=== PATIENT | male | born 1940 | race Caucasian/White ===

== ENCOUNTER 2018-12-30 10:35 | Day surgery (SDC) | payer MEDICARE ==
[2018-12-30] VITALS (8 sets, daily range): BP systolic 130–173; BP diastolic 77–106
[~2018-12-30] VITALS: Ht 175.3 cm; Wt 106.6 kg
[2018-12-30] MEDS ORDERED: sod bicarbonate 150mEq in D5W 1,150 ML IV ONE (10:55)
[2018-12-30] MEDS ORDERED: diphenhydrAMINE 25mg capsule PO PRN (10:55)
[2018-12-30] MEDS ORDERED: LEVA15HF4 INH (11:13)
[2018-12-30] MEDS ORDERED: ASPI81TA52 PO (11:13)
[2018-12-30] MEDS ORDERED: PANT-47 PO (11:13)
[2018-12-30] MEDS ORDERED: SENN-162 PO (11:13)
[2018-12-30] MEDS ORDERED: AMLO2.5T2 PO (11:13)
[2018-12-30] MEDS ORDERED: CHOL10002 PO (11:13)
[2018-12-30] MEDS ORDERED: CLOP75TA15 PO (11:13)
[2018-12-30] MEDS ORDERED: OMEG1CAP2 PO (11:13)
[2018-12-30] MEDS ORDERED: ATOR80TA PO (11:13)
[2018-12-30] MEDS ORDERED: METO-539 PO (11:13)
[2018-12-30] MEDS ORDERED: GARL10004 PO (11:13)
[2018-12-30 11:47] LABS: BASOPHILS % (AUTO) 0.6 % (0-1); EOSINOPHILS # (AUTO) 0.2 X10'3 (0-0.9); EOSINOPHILS % (AUTO) 3.9 % (0-6); HEMOGLOBIN 13.1 g/dl (14.0-17.9); LYMPHOCYTES # (AUTO) 0.9 X10'3 (1.1-4.8); LYMPHOCYTES % (AUTO) 19.4 % (21-51); MEAN CORPUSCULAR HEMOGLOBIN 33.9 PG (27.0-31.0); MEAN CORPUSCULAR HGB CONC 34.5 g/dL (33.0-36.5); MEAN CORPUSCULAR VOLUME 98.3 FL (78-98); MEAN PLATELET VOLUME 9.5 FL (7.4-10.4); MONOCYTES # (AUTO) 0.4 X10'3 (0-0.9); MONOCYTES % (AUTO) 8.4 % (2-12); NEUTROPHILS # (AUTO) 3.2 X10'3 (1.8-7.7); NEUTROPHILS % (AUTO) 67.7 % (42-75); PLATELET COUNT 189 X10'3 (140-440); RED BLOOD COUNT 3.86 X10'6 (4.70-6.10); RED CELL DISTRIBUTION WIDTH 13.1 % (11.5-14.5); WHITE BLOOD COUNT 4.7 X10'3 (4.5-11.0)
[2018-12-30 11:59] LABS: ALBUMIN 3.6 G/DL (3.4-5.0); ANION GAP 13 (8-16); BLOOD UREA NITROGEN 17 MG/DL (7-18); BUN/CREATININE RATIO 22.7 (5.4-32.0); CALCIUM 9.3 MG/DL (8.5-10.1); CHLORIDE 104 MMOL/L (99-107); CREATININE 0.75 MG/DL (0.60-1.10); GLUCOSE 103 MG/DL (70-104); POTASSIUM 3.9 MMOL/L (3.5-5.1); SODIUM 142 MMOL/L (135-145); TOTAL CARBON DIOXIDE 24.6 MMOL/L (24-32); eGFR > 90 ML/MIN
[2018-12-30] MEDS ORDERED: normal saline 1000ml 1,000 ML IV SCH (12:00)
[2018-12-30 12:02] LABS: PROTHROMBIN TIME 10.1 SECONDS (9.0-12.0)
[2018-12-30] MEDS ORDERED: midazolam 2 mg/2 ml injection ONE (14:26)
[2018-12-30] MEDS ORDERED: fentaNYL/PF 50MCG/1 ML 2ML syringe ONE (14:26)
[2018-12-30] MEDS ORDERED: iohexol 350 MG/ML 50ML vial IV ONE (14:26)
[2018-12-30] MEDS ORDERED: iohexol 350MG/ML 100ml bottle IV ONE ×2 (14:26→15:20)
[2018-12-30] MEDS ORDERED: LIDOcaine 1% (10mg/ml)w/preservative injection 20ml MDV ONE (14:26)
[2018-12-30] MEDS ORDERED: heparin 1,000unit/ml 10ml vial 10 ML ONE (15:04)
== END 2018-12-30 19:00 | disposition home or self-care (01) ==
LOC: SSTAY O 10:35
PROVIDERS: ATTEND Internal Medicine Cardiovascular Disease
DX: I25.10 Atherosclerotic heart disease of native coronary artery without angina pectoris (principal); I45.81 Long QT syndrome; E78.5 Hyperlipidemia, unspecified; I10 Essential (primary) hypertension; K21.9 Gastro-esophageal reflux disease without esophagitis; J44.9 Chronic obstructive pulmonary disease, unspecified; I71.4 Abdominal aortic aneurysm, without rupture; Z87.891 Personal history of nicotine dependence; Z72.89 Other problems related to lifestyle; Z86.14 Personal history of Methicillin resistant Staphylococcus aureus infection; Z85.46 Personal history of malignant neoplasm of prostate; Z90.79 Acquired absence of other genital organ(s); Z98.41 Cataract extraction status, right eye; Z98.42 Cataract extraction status, left eye; Z95.5 Presence of coronary angioplasty implant and graft; Z79.82 Long term (current) use of aspirin; Z98.890 Other specified postprocedural states; Z79.899 Other long term (current) drug therapy; Z82.3 Family history of stroke; Z80.9 Family history of malignant neoplasm, unspecified
CPT/HCPCS: 36415; 80048; 83735; 85025; 85610; 93458; 99152; 99153; A6257; C1760; C1874; C9600; J1644; J2001; J2250; J3010; J7030; Q0163; Q9967; C1769; C1894

== ENCOUNTER 2022-05-09 14:27 | Inpatient (IN) | payer MEDICARE ==
[~2022-05-09] VITALS: Ht 175.3 cm; Wt 175.3 kg
[~2022-05-09 14:27] MED LIST: AMLO2.5T2 PO; ASPI81TA52 PO; ATOR80TA PO; CHOL10002 PO; CLOP75TA15 PO; GARL10004 PO; LEVA15HF4 INH; METO-539 PO; OMEG1CAP2 PO; PANT-47 PO; SENN-263 PO
[2022-05-09 15:25] LABS: BASOPHILS % (AUTO) 0.4 % (0-1); EOSINOPHILS % (AUTO) 1.2 % (0-6); HEMATOCRIT 35.9 % (42.0-52.0); LYMPHOCYTES # (AUTO) 0.9 X10'3 (1.1-4.8); LYMPHOCYTES % (AUTO) 22.4 % (21-51); MEAN CORPUSCULAR HEMOGLOBIN 32.7 PG (27.0-31.0); MEAN CORPUSCULAR HGB CONC 33.3 g/dL (33.0-36.5); MEAN CORPUSCULAR VOLUME 98.1 FL (78-98); MEAN PLATELET VOLUME 8.8 FL (7.4-10.4); MONOCYTES # (AUTO) 0.3 X10'3 (0-0.9); MONOCYTES % (AUTO) 7.7 % (2-12); NEUTROPHILS # (AUTO) 2.7 X10'3 (1.8-7.7); NEUTROPHILS % (AUTO) 68.3 % (42-75); PLATELET COUNT 160 X10'3 (140-440); RED BLOOD COUNT 3.66 X10'6 (4.70-6.10); RED CELL DISTRIBUTION WIDTH 13.5 % (11.5-14.5)
[2022-05-09] MEDS ORDERED: furosemide 10 MG/1 ML 10ml inj IV ONE (15:35)
[2022-05-09 15:40] LABS: ALANINE AMINOTRANSFERASE 50 U/L (12-78); ALBUMIN 3.9 G/DL (3.4-5.0); ALBUMIN/GLOBULIN RATIO 1.2 (1.1-1.5); ALKALINE PHOSPHATASE 52 IU/L (46-116); ANION GAP 14 (8-16); ASPARTATE AMINO TRANSFERASE 38 U/L (10-37); BILIRUBIN,TOTAL 0.8 MG/DL (0.1-1.0); BLOOD UREA NITROGEN 25 MG/DL (7-18); BUN/CREATININE RATIO 22.3 (5.4-32.0); CALCIUM 8.8 MG/DL (8.5-10.1); CHLORIDE 108 MMOL/L (99-107); CREATININE 1.12 MG/DL (0.60-1.10); GLUCOSE 93 MG/DL (70-104); POTASSIUM 4.4 MMOL/L (3.5-5.1); SODIUM 145 MMOL/L (135-145); TOTAL CARBON DIOXIDE 22.9 MMOL/L (24-32); TOTAL PROTEIN 7.1 G/DL (6.4-8.2); eGFR 63 ML/MIN
[2022-05-09] MEDS ORDERED: ondansetron/PF 4mg/2ml inj IV PRN (16:05)
[2022-05-09] MEDS ORDERED: HYDROcodone/acetaminophen 5mg/325mg tablet PO PRN (16:05)
[2022-05-09] MEDS ORDERED: potassium CL 10mEq/100ml bag 100 ML IV PRN (16:05)
[2022-05-09] MEDS ORDERED: morphine 2 MG/ML inj. syringe IV PRN (16:05)
[2022-05-09] MEDS ORDERED: magnesium 2GM in 50ml NS 50 ML IV PRN (16:05)
[2022-05-09] MEDS ORDERED: POTASSIUM BICARB 20meq eff tab 20 MEQ TABLET.EFF PO PRN ×2 (16:05)
[2022-05-09] MEDS ORDERED: magnesium 4gm in 100ml NS 100 ML IV PRN (16:05)
[2022-05-09] MEDS ORDERED: acetaminophen 325mg tablet PO PRN ×2 (16:05)
[2022-05-09] MEDS ORDERED: magnesium Cl slow-release 64mg tablet PO PRN (16:05)
[2022-05-09] MEDS: amLODIPine 5mg tablet PO SCH (16:10)
[2022-05-09] MEDS ORDERED: HYDR12.55 PO (18:49)
[2022-05-09] MEDS ORDERED: ROSU40TA22 PO (18:49)
[2022-05-09] MEDS ORDERED: DULO60CA65 PO (18:49)
[2022-05-09] MEDS ORDERED: TELM80TA9 PO (18:49)
[2022-05-09] MEDS ORDERED: BUDE10.2 INH (18:49)
[2022-05-09] MEDS ORDERED: FLUT16SP26 BOTHNARES (18:59)
[2022-05-09] MEDS ORDERED: GABA300C PO (19:19)
[2022-05-09 19:20] VITALS: BP 170/62
[2022-05-09] MEDS: K and/or MAG REPLACEMENT MC SCH (20:00)
[2022-05-09] MEDS: heparin, porcine 5000 units/ml vial SQ SCH (20:59)
[2022-05-09 22:00] VITALS: BP 190/52
[2022-05-09] MEDS ORDERED: hydrALAZINE 20mg/ml inj. IV PRN (22:00)
[2022-05-10] VITALS (7 sets, daily range): BP systolic 134–178; BP diastolic 37–67
--- NOTE | 2022-05-10 02:48 | NUR ---
pt had b/p of 208/62. MD freedman was notified, who ordered hydralazine iv 10mg prn 6hrly to be given for b/p more than 170/100.
--- NOTE | 2022-05-10 07:14 | NUR ---
Patient in room PCU 3022. I have received report from LA DONIS, and had the opportunity to ask questions and assume patient care.
[2022-05-10 07:31] LABS: BASOPHILS % (AUTO) 0.4 % (0-1); EOSINOPHILS % (AUTO) 1.1 % (0-6); HEMOGLOBIN 13.5 g/dl (14.0-17.9); LYMPHOCYTES # (AUTO) 0.9 X10'3 (1.1-4.8); LYMPHOCYTES % (AUTO) 23.1 % (21-51); MEAN CORPUSCULAR HEMOGLOBIN 32.6 PG (27.0-31.0); MEAN CORPUSCULAR HGB CONC 33.7 g/dL (33.0-36.5); MEAN CORPUSCULAR VOLUME 96.7 FL (78-98); MEAN PLATELET VOLUME 9.3 FL (7.4-10.4); MONOCYTES # (AUTO) 0.4 X10'3 (0-0.9); MONOCYTES % (AUTO) 9.3 % (2-12); NEUTROPHILS # (AUTO) 2.7 X10'3 (1.8-7.7); NEUTROPHILS % (AUTO) 66.1 % (42-75); PLATELET COUNT 184 X10'3 (140-440); RED BLOOD COUNT 4.13 X10'6 (4.70-6.10); RED CELL DISTRIBUTION WIDTH 13.6 % (11.5-14.5); WHITE BLOOD COUNT 4.1 X10'3 (4.5-11.0)
[2022-05-10 07:50] LABS: ALANINE AMINOTRANSFERASE 50 U/L (12-78); ALBUMIN/GLOBULIN RATIO 1.1 (1.1-1.5); ALKALINE PHOSPHATASE 59 IU/L (46-116); ANION GAP 13 (8-16); ASPARTATE AMINO TRANSFERASE 40 U/L (10-37); BILIRUBIN,TOTAL 1.3 MG/DL (0.1-1.0); BLOOD UREA NITROGEN 24 MG/DL (7-18); BUN/CREATININE RATIO 21.1 (5.4-32.0); CALCIUM 9.3 MG/DL (8.5-10.1); CHLORIDE 107 MMOL/L (99-107); CREATININE 1.14 MG/DL (0.60-1.10); GLUCOSE 101 MG/DL (70-104); POTASSIUM 3.9 MMOL/L (3.5-5.1); SODIUM 146 MMOL/L (135-145); TOTAL CARBON DIOXIDE 25.7 MMOL/L (24-32); TOTAL PROTEIN 7.6 G/DL (6.4-8.2); eGFR 61 ML/MIN
[2022-05-10] MEDS: heparin, porcine 5000 units/ml vial SQ SCH ×2 (07:55→19:55)
[2022-05-10] MEDS: clopidogrel 75mg tablet PO SCH (07:56)
[2022-05-10] MEDS: amLODIPine 5mg tablet PO SCH (07:56)
[2022-05-10] MEDS: K and/or MAG REPLACEMENT MC SCH ×2 (08:00→19:56)
--- NOTE | 2022-05-10 18:17 | NUR ---
Problems reprioritized. Patient report given, questions answered & plan of care reviewed with LA DONIS.
[2022-05-11] VITALS (7 sets, daily range): BP systolic 119–168; BP diastolic 32–71
--- NOTE | 2022-05-11 06:30 | NUR ---
Patient in room PCU 3024. I have received report from LA Cheney, and had the opportunity to ask questions and assume patient care.
[2022-05-11 06:37] LABS: BASOPHILS % (AUTO) 0.4 % (0-1); EOSINOPHILS # (AUTO) 0.1 X10'3 (0-0.9); EOSINOPHILS % (AUTO) 1.6 % (0-6); HEMATOCRIT 38.9 % (42.0-52.0); HEMOGLOBIN 12.9 g/dl (14.0-17.9); LYMPHOCYTES # (AUTO) 0.7 X10'3 (1.1-4.8); MEAN CORPUSCULAR HEMOGLOBIN 32.6 PG (27.0-31.0); MEAN CORPUSCULAR HGB CONC 33.2 g/dL (33.0-36.5); MEAN CORPUSCULAR VOLUME 98.1 FL (78-98); MEAN PLATELET VOLUME 8.8 FL (7.4-10.4); MONOCYTES # (AUTO) 0.4 X10'3 (0-0.9); MONOCYTES % (AUTO) 10.7 % (2-12); NEUTROPHILS # (AUTO) 2.3 X10'3 (1.8-7.7); NEUTROPHILS % (AUTO) 66.3 % (42-75); PLATELET COUNT 171 X10'3 (140-440); RED BLOOD COUNT 3.96 X10'6 (4.70-6.10); RED CELL DISTRIBUTION WIDTH 13.4 % (11.5-14.5); WHITE BLOOD COUNT 3.5 X10'3 (4.5-11.0)
[2022-05-11 06:51] LABS: ALANINE AMINOTRANSFERASE 44 U/L (12-78); ALBUMIN 3.5 G/DL (3.4-5.0); ALKALINE PHOSPHATASE 53 IU/L (46-116); ANION GAP 11 (8-16); ASPARTATE AMINO TRANSFERASE 36 U/L (10-37); BILIRUBIN,TOTAL 1.1 MG/DL (0.1-1.0); BLOOD UREA NITROGEN 25 MG/DL (7-18); CALCIUM 9.1 MG/DL (8.5-10.1); CHLORIDE 105 MMOL/L (99-107); CREATININE 1.04 MG/DL (0.60-1.10); GLUCOSE 109 MG/DL (70-104); SODIUM 143 MMOL/L (135-145); TOTAL CARBON DIOXIDE 27.5 MMOL/L (24-32); TOTAL PROTEIN 6.9 G/DL (6.4-8.2); eGFR 68 ML/MIN
[2022-05-11] MEDS: clopidogrel 75mg tablet PO SCH (08:30)
[2022-05-11] MEDS: heparin, porcine 5000 units/ml vial SQ SCH ×2 (08:31→20:00)
[2022-05-11] MEDS: amLODIPine 5mg tablet PO SCH (08:31)
[2022-05-11] MEDS: K and/or MAG REPLACEMENT MC SCH ×2 (08:32→18:56)
[2022-05-11] MEDS: albuterol 2.5 MG/3 ML nebule NEB SCH ×2 (14:34→20:15)
[2022-05-11] MEDS: gabapentin 300mg capsule PO SCH (20:00)
[2022-05-11] MEDS: budesonide 0.5mg/2ml UD nebule IH SCH (20:14)
[2022-05-12] MEDS: albuterol 2.5 MG/3 ML nebule NEB SCH ×4 (03:33→23:41)
[2022-05-12 06:00] VITALS: BP 138/52
[2022-05-12 06:22] LABS: BASOPHILS % (AUTO) 0.5 % (0-1); EOSINOPHILS % (AUTO) 0.8 % (0-6); HEMATOCRIT 37.2 % (42.0-52.0); HEMOGLOBIN 12.4 g/dl (14.0-17.9); LYMPHOCYTES # (AUTO) 0.7 X10'3 (1.1-4.8); LYMPHOCYTES % (AUTO) 17.6 % (21-51); MEAN CORPUSCULAR HEMOGLOBIN 32.7 PG (27.0-31.0); MEAN CORPUSCULAR HGB CONC 33.4 g/dL (33.0-36.5); MEAN CORPUSCULAR VOLUME 97.8 FL (78-98); MEAN PLATELET VOLUME 8.7 FL (7.4-10.4); MONOCYTES # (AUTO) 0.5 X10'3 (0-0.9); MONOCYTES % (AUTO) 11.7 % (2-12); NEUTROPHILS # (AUTO) 2.8 X10'3 (1.8-7.7); NEUTROPHILS % (AUTO) 69.4 % (42-75); PLATELET COUNT 171 X10'3 (140-440); RED BLOOD COUNT 3.81 X10'6 (4.70-6.10); RED CELL DISTRIBUTION WIDTH 13.6 % (11.5-14.5)
[2022-05-12 06:51] LABS: ALANINE AMINOTRANSFERASE 44 U/L (12-78); ALBUMIN 3.6 G/DL (3.4-5.0); ALBUMIN/GLOBULIN RATIO 1.1 (1.1-1.5); ALKALINE PHOSPHATASE 49 IU/L (46-116); ANION GAP 14 (8-16); ASPARTATE AMINO TRANSFERASE 37 U/L (10-37); BILIRUBIN,TOTAL 0.9 MG/DL (0.1-1.0); BLOOD UREA NITROGEN 24 MG/DL (7-18); BUN/CREATININE RATIO 21.2 (5.4-32.0); CALCIUM 9.4 MG/DL (8.5-10.1); CHLORIDE 106 MMOL/L (99-107); CREATININE 1.13 MG/DL (0.60-1.10); GLUCOSE 111 MG/DL (70-104); POTASSIUM 3.8 MMOL/L (3.5-5.1); SODIUM 145 MMOL/L (135-145); TOTAL CARBON DIOXIDE 25.2 MMOL/L (24-32); TOTAL PROTEIN 6.8 G/DL (6.4-8.2); eGFR 62 ML/MIN
[2022-05-12] MEDS ORDERED: clopidogrel 75mg tablet PO SCH (08:00)
[2022-05-12] MEDS: amLODIPine 5mg tablet PO SCH (08:07)
[2022-05-12] MEDS: atorvastatin 20mg tablet PO SCH (08:08)
[2022-05-12] MEDS: pantoprazole 40mg Tablet.DR PO SCH (08:08)
[2022-05-12] MEDS: losartan 50mg tablet PO SCH (08:09)
[2022-05-12] MEDS: duloxetine 30mg CAPSULE.DR PO SCH (08:09)
[2022-05-12] MEDS: HYDROchlorothiazide 12.5mg capsule PO SCH (08:09)
[2022-05-12] MEDS: clopidogrel 75mg tablet PO SCH (08:10)
[2022-05-12] MEDS: gabapentin 300mg capsule PO SCH ×2 (08:10→19:52)
[2022-05-12] MEDS: budesonide 0.5mg/2ml UD nebule IH SCH ×2 (08:11→23:40)
[2022-05-12] MEDS: heparin, porcine 5000 units/ml vial SQ SCH ×2 (08:14→19:53)
[2022-05-12] MEDS: K and/or MAG REPLACEMENT MC SCH ×2 (08:18→19:48)
[2022-05-12 11:00] VITALS: BP 140/36
--- NOTE | 2022-05-12 11:22 | NUR ---
Sent page to Lisa NELSON. Pt would like to proceed with pacemaker.
[2022-05-12 15:00] VITALS: BP 152/49
[2022-05-12 18:00] VITALS: BP 151/58
[2022-05-12 22:00] VITALS: BP 127/34
[2022-05-13] VITALS (13 sets, daily range): BP systolic 119–152; BP diastolic 49–81
[2022-05-13] MEDS: albuterol 2.5 MG/3 ML nebule NEB SCH ×4 (02:46→21:04)
--- NOTE | 2022-05-13 06:15 | NUR ---
Change of shift report given to RN Vanessa. Issues reprioritized. patient stable. No acute complaints
[2022-05-13 06:28] LABS: ALANINE AMINOTRANSFERASE 55 U/L (12-78); ALBUMIN 3.6 G/DL (3.4-5.0); ALBUMIN/GLOBULIN RATIO 1.1 (1.1-1.5); ALKALINE PHOSPHATASE 54 IU/L (46-116); ANION GAP 14 (8-16); ASPARTATE AMINO TRANSFERASE 46 U/L (10-37); BLOOD UREA NITROGEN 25 MG/DL (7-18); BUN/CREATININE RATIO 23.6 (5.4-32.0); CALCIUM 9.5 MG/DL (8.5-10.1); CHLORIDE 105 MMOL/L (99-107); CREATININE 1.06 MG/DL (0.60-1.10); GLUCOSE 107 MG/DL (70-104); SODIUM 143 MMOL/L (135-145); TOTAL CARBON DIOXIDE 24.1 MMOL/L (24-32); eGFR 67 ML/MIN
[2022-05-13 06:46] LABS: BASOPHILS % (AUTO) 0.3 % (0-1); EOSINOPHILS # (AUTO) 0.1 X10'3 (0-0.9); EOSINOPHILS % (AUTO) 1.5 % (0-6); HEMATOCRIT 38.8 % (42.0-52.0); HEMOGLOBIN 12.7 g/dl (14.0-17.9); LYMPHOCYTES # (AUTO) 0.7 X10'3 (1.1-4.8); LYMPHOCYTES % (AUTO) 17.3 % (21-51); MEAN CORPUSCULAR HEMOGLOBIN 31.8 PG (27.0-31.0); MEAN CORPUSCULAR HGB CONC 32.7 g/dL (33.0-36.5); MEAN CORPUSCULAR VOLUME 97.5 FL (78-98); MEAN PLATELET VOLUME 8.9 FL (7.4-10.4); MONOCYTES # (AUTO) 0.5 X10'3 (0-0.9); MONOCYTES % (AUTO) 11.1 % (2-12); NEUTROPHILS # (AUTO) 2.9 X10'3 (1.8-7.7); NEUTROPHILS % (AUTO) 69.8 % (42-75); PLATELET COUNT 181 X10'3 (140-440); RED BLOOD COUNT 3.98 X10'6 (4.70-6.10); RED CELL DISTRIBUTION WIDTH 13.6 % (11.5-14.5); WHITE BLOOD COUNT 4.2 X10'3 (4.5-11.0)
--- NOTE | 2022-05-13 07:04 | NUR ---
Patient in room PCU 3022. I have received report from LA Reeves and had the opportunity to ask questions and assume patient care.
[2022-05-13] MEDS: clopidogrel 75mg tablet PO SCH (08:00)
[2022-05-13] MEDS: K and/or MAG REPLACEMENT MC SCH ×2 (08:00→20:00)
[2022-05-13] MEDS: heparin, porcine 5000 units/ml vial SQ SCH ×2 (08:00→20:41)
[2022-05-13] MEDS: pantoprazole 40mg Tablet.DR PO SCH (09:05)
[2022-05-13] MEDS: HYDROchlorothiazide 12.5mg capsule PO SCH (09:05)
[2022-05-13] MEDS: losartan 50mg tablet PO SCH (09:05)
[2022-05-13] MEDS: atorvastatin 20mg tablet PO SCH (09:06)
[2022-05-13] MEDS: duloxetine 30mg CAPSULE.DR PO SCH (09:06)
[2022-05-13] MEDS: gabapentin 300mg capsule PO SCH ×2 (09:06→20:41)
[2022-05-13] MEDS: amLODIPine 5mg tablet PO SCH (09:06)
[2022-05-13] MEDS: budesonide 0.5mg/2ml UD nebule IH SCH ×2 (09:31→21:05)
--- NOTE | 2022-05-13 10:26 | NUR ---
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 Pt on a heart healthy diet, documented with mostly 50% PO intake however up to 100% PO intake at dinner last night. Will hold off on nutrition intervention pending additional trends in PO intake given improvement at dinner. LBM 05/12 per I&O. Will continue to follow closely and make recommendations as appropriate. Recommendations: 1) Continue heart healthy diet 2) Monitor need for ONS 3) Bowel care PRN 4) Scaled weight this admit; subsequent weekly scaled weights Addendum: 05/13/22 at [address] Amended: Links added.
[2022-05-13] MEDS ORDERED: ceFAZolin 1000mg inj ONE (13:41)
[2022-05-13] MEDS ORDERED: LIDOcaine 1% W/epiNEPHrine 1:100,000 20ml vial ONE ×2 (13:41→17:27)
[2022-05-13] MEDS ORDERED: fentaNYL/PF 50MCG/1 ML 2ML syringe ONE (13:41)
[2022-05-13] MEDS ORDERED: midazolam 1 mg/ML 2ml injection ONE (13:41)
[2022-05-13] MEDS ORDERED: cefazolin/dext.iso 2gm/100ml 50 ML IV ONE (13:50)
[2022-05-13] MEDS ORDERED: ceFAZolin 2gm in dextrose, iso 50 ML IV ONE (13:50)
[2022-05-13] MEDS ORDERED: cefazolin/dext.iso 2gm/100ml 100 ML IV ONE (13:51)
--- NOTE | 2022-05-13 17:14 | NUR ---
To cath lab radiology technician.
--- NOTE | 2022-05-13 18:25 | NUR ---
Problems reprioritized. Patient report given, questions answered & plan of care reviewed with LA Soriano. Pt to return from quality lab technician in a few moments.
[2022-05-13] MEDS ORDERED: HYDROcodone/acetaminophen 10/325mg tab PO PRN (18:50)
[2022-05-13] MEDS ORDERED: HYDROcodone/acetaminophen 5mg/325mg tablet PO PRN (18:50)
[2022-05-13] MEDS: normal saline 500ml IV soln 500 ML IV SCH ×2 (19:27→23:50)
[2022-05-14] MEDS ORDERED: ceFAZolin/D5W- 1GM premix 50 ML IV ONE (01:30)
[2022-05-14 02:00] VITALS: BP 152/72
[2022-05-14] MEDS: albuterol 2.5 MG/3 ML nebule NEB SCH ×2 (02:51→08:45)
[2022-05-14] MEDS: normal saline 500ml IV soln 500 ML IV SCH ×2 (04:56→09:50)
--- NOTE | 2022-05-14 06:23 | NUR ---
Patient in room PCU 3022. I have received report from Christie TOVAR and had the opportunity to ask questions and assume patient care.Patient is resting in bed in no acute distress.
[2022-05-14 07:00] VITALS: BP 145/65
[2022-05-14 07:00] LABS: BASOPHILS % (AUTO) 0.3 % (0-1); EOSINOPHILS % (AUTO) 0.9 % (0-6); HEMATOCRIT 37.9 % (42.0-52.0); HEMOGLOBIN 12.8 g/dl (14.0-17.9); LYMPHOCYTES # (AUTO) 0.7 X10'3 (1.1-4.8); MEAN CORPUSCULAR HEMOGLOBIN 33.1 PG (27.0-31.0); MEAN CORPUSCULAR HGB CONC 33.9 g/dL (33.0-36.5); MEAN CORPUSCULAR VOLUME 97.6 FL (78-98); MEAN PLATELET VOLUME 8.7 FL (7.4-10.4); MONOCYTES # (AUTO) 0.4 X10'3 (0-0.9); MONOCYTES % (AUTO) 10.4 % (2-12); NEUTROPHILS # (AUTO) 3.1 X10'3 (1.8-7.7); NEUTROPHILS % (AUTO) 72.4 % (42-75); PLATELET COUNT 170 X10'3 (140-440); RED BLOOD COUNT 3.88 X10'6 (4.70-6.10); RED CELL DISTRIBUTION WIDTH 13.9 % (11.5-14.5); WHITE BLOOD COUNT 4.2 X10'3 (4.5-11.0)
[2022-05-14 07:22] LABS: ALANINE AMINOTRANSFERASE 59 U/L (12-78); ALBUMIN 3.5 G/DL (3.4-5.0); ALKALINE PHOSPHATASE 59 IU/L (46-116); ANION GAP 16 (8-16); ASPARTATE AMINO TRANSFERASE 49 U/L (10-37); BLOOD UREA NITROGEN 23 MG/DL (7-18); BUN/CREATININE RATIO 21.7 (5.4-32.0); CALCIUM 8.9 MG/DL (8.5-10.1); CHLORIDE 106 MMOL/L (99-107); CREATININE 1.06 MG/DL (0.60-1.10); GLUCOSE 101 MG/DL (70-104); SODIUM 146 MMOL/L (135-145); TOTAL CARBON DIOXIDE 24.5 MMOL/L (24-32); eGFR 67 ML/MIN
[2022-05-14] MEDS: K and/or MAG REPLACEMENT MC SCH (08:00)
[2022-05-14] MEDS: pantoprazole 40mg Tablet.DR PO SCH (08:37)
[2022-05-14] MEDS: losartan 50mg tablet PO SCH (08:37)
[2022-05-14] MEDS: duloxetine 30mg CAPSULE.DR PO SCH (08:38)
[2022-05-14] MEDS: atorvastatin 20mg tablet PO SCH (08:38)
[2022-05-14] MEDS: gabapentin 300mg capsule PO SCH (08:38)
[2022-05-14] MEDS: amLODIPine 5mg tablet PO SCH (08:38)
[2022-05-14] MEDS: HYDROchlorothiazide 12.5mg capsule PO SCH (08:38)
[2022-05-14] MEDS: clopidogrel 75mg tablet PO SCH (08:38)
[2022-05-14] MEDS: heparin, porcine 5000 units/ml vial SQ SCH (08:39)
[2022-05-14] MEDS ORDERED: budesonide 0.5mg/2ml UD nebule IH SCH (08:48)
[2022-05-14 11:00] VITALS: BP 152/60
--- NOTE | 2022-05-14 13:05 | NUR ---
patient was DC to home and picked up by a friend. RX was handed to patient. PIV was removed with cannula intact. DC instructions and warning s/s were reviewed with the patient and he verbalized understanding. Patient took all belongings with him. He was alert, oriented, and appropriate at time of DC.
== END 2022-05-14 13:04 | disposition home or self-care (01) | DRG 243 ==
LOC: ER 14:27 → ED HOLD 16:06 → PCU 3S 19:00
PROVIDERS: ADMIT Internal Medicine; ATTEND Internal Medicine
PROC: 0JH606Z Insertion of Pacemaker, Dual Chamber into Chest Subcutaneous Tissue and Fascia, Open Approach (ICD-10-PCS; principal; 2022-05-13)
PROC: 02HK3JZ Insertion of Pacemaker Lead into Right Ventricle, Percutaneous Approach (ICD-10-PCS; 2022-05-13)
PROC: 02H63JZ Insertion of Pacemaker Lead into Right Atrium, Percutaneous Approach (ICD-10-PCS; 2022-05-13)
DX: I44.2 Atrioventricular block, complete (principal); Z68.43 Body mass index [BMI] 50.0-59.9, adult; Q21.1 Atrial septal defect; N17.9 Acute kidney failure, unspecified; J44.9 Chronic obstructive pulmonary disease, unspecified; I10 Essential (primary) hypertension; E66.9 Obesity, unspecified; G89.29 Other chronic pain; M54.50 Low back pain, unspecified; E78.5 Hyperlipidemia, unspecified; G47.33 Obstructive sleep apnea (adult) (pediatric); Z85.46 Personal history of malignant neoplasm of prostate; Z95.5 Presence of coronary angioplasty implant and graft; Z87.891 Personal history of nicotine dependence; Z79.899 Other long term (current) drug therapy; Z79.82 Long term (current) use of aspirin
CPT/HCPCS: 33208; 36415; 71045; 80053; 83880; 84484; 85025; 87081; 93005; 93306; 94640; 94760; 97110; 97116; 97161; 97530; 99152; 99153; 99285; A4565; A4620; A6449; C1894; C1898; G0378; J0360; J0690; J1644; J1940; J2250; J3010; J3490; J7030; J7040

== ENCOUNTER 2024-09-15 19:01 | Inpatient (IN) | payer MEDICARE, OTHER, MEDICAID ==
[~2024-09-15] VITALS: Ht 175.3 cm; Wt 104.5 kg
[~2024-09-15 19:01] MED LIST changes: -AMLO2.5T2 PO; -ASPI81TA52 PO; -ATOR80TA PO; +BUDE10.2 INH; -CHOL10002 PO; +DULO60CA65 PO; +FLUT16SP26 BOTHNARES; +GABA300C PO; -GARL10004 PO; +HYDR12.55 PO; -LEVA15HF4 INH; -OMEG1CAP2 PO; +ROSU40TA89 PO; -SENN-263 PO; +TELM80TA9 PO
[2024-09-15 19:24] LABS: ABG BASE EXCESS -2.6 mmol/L (-2.0-3.0); ABG HCO3 20.4 mmol/L (21.0-28.0); ABG OXYGEN SATURATION 91.8 % (94.0-98.0); ABG PCO2 (T) 33.7 mmHg (35.0-48.0); ABG PO2 (T) 73.6 mmHg (83.0-108.0); ALLEN'S TEST Modified; FCOHb 0.3 % (0.5-1.5); FHHb 8.2 % (0.0-5.0); FLOW 12 L/min; FMetHb 0.3 % (0.0-1.5); FO2Hb 91.2 % (94.0-98.0); MODE CPAP; PATIENT TEMPERATURE 39.3; TOTAL HEMOGLOBIN 12.9 G/dl (13.5-17.5)
[2024-09-15] MEDS: acetaminophen 1,000mg/100ml IV 100 ML IV ONE (19:35)
[2024-09-15] MEDS: normal saline 1000ML IV soln IVB ONE (19:40)
[2024-09-15] MEDS: azithromycin/NS 500mg/250ml 250 ML IV ONE (19:40)
[2024-09-15] MEDS: methylPREDNISolone sod succ 125mg/2ml vial IV ONE (19:41)
[2024-09-15] MEDS: CefTRIAXone/D5W-Rocephin 1gm 50 ML IV ONE (19:41)
[2024-09-15 19:43] LABS: ALANINE AMINOTRANSFERASE 40 U/L (12-78); ALBUMIN 3.9 G/DL (3.4-5.0); ALBUMIN/GLOBULIN RATIO 1.1 (1.1-1.5); ALKALINE PHOSPHATASE 59 IU/L (46-116); ANION GAP 11 (8-16); ASPARTATE AMINO TRANSFERASE 47 U/L (10-37); BILIRUBIN,TOTAL 0.8 MG/DL (0.1-1.0); BLOOD UREA NITROGEN 24 MG/DL (7-18); BUN/CREATININE RATIO 20.5 (10.0-20.0); CALCIUM 9.3 MG/DL (8.5-10.1); CHLORIDE 103 MMOL/L (99-107); CREATININE 1.17 MG/DL (0.60-1.10); GLUCOSE 110 MG/DL (70-104); SODIUM 140 MMOL/L (135-145); TOTAL CARBON DIOXIDE 26.1 MMOL/L (24-32); TOTAL PROTEIN 7.5 G/DL (6.4-8.2); eCRCL 46 ML/MIN; eGFR 59 ML/MIN
[2024-09-15 19:51] LABS: PRO BRAIN NATRIURETIC PEPTIDE 250 PG/ML (0-450)
[2024-09-15 19:52] VITALS: PULSE 111; RESP 24; O2SAT 96
[2024-09-15] MEDS: albuterol 2.5 MG/3 ML nebule CONTNEB PRN (19:52)
[2024-09-15 19:59] VITALS: PULSE 107; RESP 22; O2SAT 96
[2024-09-15 20:03] VITALS: PULSE 106; RESP 22
[2024-09-15 20:03] LABS: POTASSIUM 4.5 MMOL/L (3.5-5.1)
[2024-09-15 20:52] LABS: BASOPHILS % (AUTO) 0.4 % (0-1); EOSINOPHILS % (AUTO) 0.3 % (0-6); HEMATOCRIT 39.3 % (42.0-52.0); HEMOGLOBIN 12.7 g/dl (14.0-17.9); LYMPHOCYTES # (AUTO) 0.5 X10'3 (1.1-4.8); LYMPHOCYTES % (AUTO) 8.4 % (21-51); MEAN CORPUSCULAR HEMOGLOBIN 30.8 PG (27.0-31.0); MEAN CORPUSCULAR HGB CONC 32.3 g/dL (33.0-36.5); MEAN CORPUSCULAR VOLUME 95.4 FL (78-98); MEAN PLATELET VOLUME 8.8 FL (7.4-10.4); MONOCYTES # (AUTO) 0.5 X10'3 (0-0.9); NEUTROPHILS # (AUTO) 5.5 X10'3 (1.8-7.7); NEUTROPHILS % (AUTO) 83.9 % (42-75); PLATELET COUNT 186 X10'3 (140-440); RED BLOOD COUNT 4.12 X10'6 (4.70-6.10); RED CELL DISTRIBUTION WIDTH 14.9 % (11.5-14.5); WHITE BLOOD COUNT 6.5 X10'3 (4.5-11.0)
[2024-09-15 22:31] VITALS: PULSE 96; RESP 25; O2SAT 97
[2024-09-15 22:39] VITALS: PULSE 92; RESP 20; O2SAT 93
[2024-09-15] MEDS: albuterol 2.5 MG/3 ML nebule NEB ONE (22:39)
[2024-09-15 23:48] VITALS: PULSE 99; RESP 22
[2024-09-15] MEDS ORDERED: magnesium sulf-water 4G/100mL 100 ML IV PRN (23:55)
[2024-09-15] MEDS ORDERED: mag hydrox/Alum hydrox/simeth 30ml oral suspension PO PRN (23:55)
[2024-09-15] MEDS ORDERED: potassium Cl 20 mEq SR tablet PO PRN (23:55)
[2024-09-15] MEDS ORDERED: potassium Cl 40MEQ/1/2NS 520ml 520 ML IV PRN (23:55)
[2024-09-15] MEDS ORDERED: haloperidol 5mg tablet PO PRN (23:55)
[2024-09-15] MEDS ORDERED: magnesium sulf-water 2g/50mL 50 ML IV PRN (23:55)
[2024-09-15] MEDS ORDERED: magnesium hydroxide 30ml (MOM) UD suspension PO PRN (23:55)
[2024-09-15] MEDS ORDERED: dextrose 50%-water 50ml dispensing syringe IV PRN (23:55)
[2024-09-15] MEDS ORDERED: morphine 2 MG/ML inj. syringe IV PRN (23:55)
[2024-09-15] MEDS ORDERED: magnesium Cl slow-release 64mg tablet PO PRN (23:55)
[2024-09-15] MEDS ORDERED: haloperidol lactate 5mg/ml inj IM PRN (23:55)
[2024-09-15] MEDS ORDERED: ondansetron/PF 4mg/2ml inj IV PRN (23:55)
[2024-09-16] VITALS (12 sets, daily range): BP systolic 117–132; BP diastolic 58–64; PULSE 84–104; RESP 16–25; TEMP 98.1–98.2; O2SAT 93–98
[2024-09-16 00:06] LABS: BILIRUBIN,URINE NEGATIVE (Neg); CLARITY,URINE CLEAR (Clear); COLOR,URINE YELLOW (Yellow); GLUCOSE, URINE NEGATIVE (Neg); KETONES,URINE NEGATIVE (Neg); LEUKOCYTE ESTERASE ,URINE NEGATIVE (Neg); NITRITES, URINE NEGATIVE (Neg); OCCULT BLOOD,URINE LARGE (Neg); PH,URINE 5.5 (4.8-8.0); PROTEIN,URINE NEGATIVE (Neg); UROBILINOGEN,URINE 0.2 E.U/dL (0.2-1.0)
[2024-09-16] MEDS: PERFLUTREN PROTEIN-A MICROSPHR (Optison) 0.22 MG/ML 3ML VIAL IV ONE (00:19)
[2024-09-16] MEDS ORDERED: PERFLUTREN PROTEIN-A MICROSPHR (Optison) 0.22 MG/ML 3ML VIAL IV PRN (00:21)
[2024-09-16 00:26] LABS: UA COLLECTION TYPE CLN CATCH MIDSTREAM
[2024-09-16 00:27] LABS: MUCUS STRANDS FEW /LPF (Neg); RBC,URINE 50-100 /HPF (0-2); TRANSITIONAL EPI CELLS,URINE FEW /HPF; WBC,URINE 0-4 /HPF (0-4)
[2024-09-16 00:28] LABS: BACTERIA,URINE NONE SEEN /HPF (Neg); SQUAMOUS EPITHELIAL CELL,UR FEW /LPF (FEW)
[2024-09-16] MEDS ORDERED: ipratropium/albuterol 3ml nebule NEB PRN (01:20)
[2024-09-16] MEDS: HYDROcodone/acetaminophen 5mg/325mg tablet PO PRN (01:40)
[2024-09-16] MEDS: normal saline 1000ml 1,000 ML IV SCH ×2 (01:40→17:07)
[2024-09-16 07:10] LABS: BASOPHILS % (AUTO) 0 % (0-1); EOSINOPHILS % (AUTO) 0 % (0-6); HEMATOCRIT 32.7 % (42.0-52.0); HEMOGLOBIN 10.7 g/dl (14.0-17.9); LYMPHOCYTES # (AUTO) 0.3 X10'3 (1.1-4.8); LYMPHOCYTES % (AUTO) 3.8 % (21-51); MEAN CORPUSCULAR HEMOGLOBIN 30.9 PG (27.0-31.0); MEAN CORPUSCULAR HGB CONC 32.7 g/dL (33.0-36.5); MEAN CORPUSCULAR VOLUME 94.3 FL (78-98); MEAN PLATELET VOLUME 8.2 FL (7.4-10.4); MONOCYTES # (AUTO) 0.6 X10'3 (0-0.9); MONOCYTES % (AUTO) 6.6 % (2-12); NEUTROPHILS # (AUTO) 8.2 X10'3 (1.8-7.7); NEUTROPHILS % (AUTO) 89.6 % (42-75); PLATELET COUNT 151 X10'3 (140-440); RED BLOOD COUNT 3.47 X10'6 (4.70-6.10); RED CELL DISTRIBUTION WIDTH 15.1 % (11.5-14.5); WHITE BLOOD COUNT 9.2 X10'3 (4.5-11.0)
[2024-09-16 07:59] LABS: ANION GAP 12 (8-16); BLOOD UREA NITROGEN 20 MG/DL (7-18); BUN/CREATININE RATIO 19.2 (10.0-20.0); C-REACTIVE PROTEIN 8.02 MG/DL (0.0-0.5); CALCIUM 8.4 MG/DL (8.5-10.1); CHLORIDE 105 MMOL/L (99-107); CREATININE 1.04 MG/DL (0.60-1.10); GLUCOSE 156 MG/DL (70-104); MAGNESIUM 1.6 MG/DL (1.5-2.4); PRO BRAIN NATRIURETIC PEPTIDE 1307 PG/ML (0-450); SODIUM 140 MMOL/L (135-145); TOTAL CARBON DIOXIDE 23.2 MMOL/L (24-32); eCRCL 52 ML/MIN; eGFR 68 ML/MIN
[2024-09-16] MEDS: piperacillin/tazo 4.5gm/100ml 100 ML IV SCH (08:00)
[2024-09-16] MEDS: docusate sod 100mg capsule PO SCH (08:00)
[2024-09-16] MEDS: methylPREDNISolone sod succ 125mg/2ml vial IV SCH ×2 (08:00→13:48)
[2024-09-16] MEDS: heparin, porcine 5000 units/ml vial SQ SCH (08:00)
[2024-09-16] MEDS: K and/or MAG REPLACEMENT MC SCH (08:00)
[2024-09-16] MEDS: thiamine 100mg/ml 2ml inj. IV SCH (08:00)
[2024-09-16] MEDS: folic acid 1mg/0.2ml inj IV SCH (08:00)
[2024-09-16 08:10] LABS: OSMOLALITY 292 MOSM/K (280-300)
[2024-09-16] MEDS ORDERED: iohexol 350MG/ML 100ml bottle IV ONE (08:40)
[2024-09-16] MEDS: thiamine 100mg/ml 2ml inj. IV ONE (10:27)
[2024-09-16] MEDS: methylPREDNISolone sod succ 125mg/2ml vial IV ONE (10:27)
[2024-09-16] MEDS: heparin, porcine 5000 units/ml vial SQ ONE (10:28)
[2024-09-16] MEDS: piperacillin/tazo 4.5gm/100ml 100 ML IV ONE (10:37)
[2024-09-16] MEDS: folic acid 1mg/0.2ml inj IV ONE (10:37)
[2024-09-16 11:57] LABS: D-DIMER 0.88 MG/L FEU (0-0.50)
[2024-09-16] MEDS: LORazepam 1 MG tablet PO PRN (13:02)
[2024-09-16 13:12] LABS: ABG BASE EXCESS -3.1 mmol/L (-2.0-3.0); ABG HCO3 19.7 mmol/L (21.0-28.0); ABG OXYGEN SATURATION 94.2 % (94.0-98.0); ABG PCO2 (T) 27.7 mmHg (35.0-48.0); ABG PH (T) 7.468 (7.350-7.450); ABG PO2 (T) 69.3 mmHg (83.0-108.0); ALLEN'S TEST POSITIVE; FCOHb 0.3 % (0.5-1.5); FHHb 5.8 % (0.0-5.0); FMetHb 0.3 % (0.0-1.5); FO2Hb 93.6 % (94.0-98.0); MODE MASK - CPAP; PATIENT TEMPERATURE 36.6; TOTAL HEMOGLOBIN 11.2 G/dl (13.5-17.5)
[2024-09-16] MEDS: ipratropium/albuterol 3ml nebule NEB SCH (13:14)
[2024-09-16] MEDS: LORazepam 2 mg/ml vial IV PRN (13:16)
[2024-09-16] MEDS ORDERED: FLUT12AE4 INH (14:02)
[2024-09-16] MEDS ORDERED: ATRNS (14:02)
[2024-09-16] MEDS ORDERED: APIX5TAB5 PO (14:02)
[2024-09-16] MEDS ORDERED: ATOR20TA66 PO (14:02)
[2024-09-16] MEDS ORDERED: METF-438 PO (14:02)
[2024-09-16] MEDS ORDERED: MELO-102 PO (14:02)
[2024-09-16] MEDS ORDERED: FLUT1BLS3 INH (14:02)
[2024-09-16] MEDS ORDERED: HYDR-3965 PO (14:02)
[2024-09-16] MEDS ORDERED: LIDO700A47 TOP (14:02)
[2024-09-16] MEDS ORDERED: TEST200V33 IM (14:02)
[2024-09-16] MEDS ORDERED: METO-384 PO (14:02)
[2024-09-17] VITALS (19 sets, daily range): BP systolic 137–167; BP diastolic 70–92; PULSE 70–108; RESP 9–24; TEMP 97.3–97.8; O2SAT 89–100
[2024-09-17 06:58] LABS: ALBUMIN 2.9 G/DL (3.4-5.0); ANION GAP 11 (8-16); BLOOD UREA NITROGEN 21 MG/DL (7-18); BUN/CREATININE RATIO 20.2 (10.0-20.0); CALCIUM 8.9 MG/DL (8.5-10.1); CHLORIDE 108 MMOL/L (99-107); CREATININE 1.04 MG/DL (0.60-1.10); GLUCOSE 152 MG/DL (70-104); MAGNESIUM 2.1 MG/DL (1.5-2.4); POTASSIUM 3.5 MMOL/L (3.5-5.1); SODIUM 142 MMOL/L (135-145); TOTAL CARBON DIOXIDE 22.9 MMOL/L (24-32); eCRCL 52 ML/MIN; eGFR 68 ML/MIN
[2024-09-17 07:12] LABS: BASOPHILS % (AUTO) 0 % (0-1); EOSINOPHILS % (AUTO) 0 % (0-6); HEMATOCRIT 30.8 % (42.0-52.0); LYMPHOCYTES # (AUTO) 0.4 X10'3 (1.1-4.8); LYMPHOCYTES % (AUTO) 3.9 % (21-51); MEAN CORPUSCULAR HEMOGLOBIN 30.7 PG (27.0-31.0); MEAN CORPUSCULAR HGB CONC 32.4 g/dL (33.0-36.5); MEAN CORPUSCULAR VOLUME 94.9 FL (78-98); MEAN PLATELET VOLUME 8.5 FL (7.4-10.4); MONOCYTES # (AUTO) 0.5 X10'3 (0-0.9); MONOCYTES % (AUTO) 4.7 % (2-12); NEUTROPHILS # (AUTO) 9.5 X10'3 (1.8-7.7); NEUTROPHILS % (AUTO) 91.4 % (42-75); PLATELET COUNT 171 X10'3 (140-440); RED BLOOD COUNT 3.24 X10'6 (4.70-6.10); RED CELL DISTRIBUTION WIDTH 15.3 % (11.5-14.5); WHITE BLOOD COUNT 10.3 X10'3 (4.5-11.0)
[2024-09-17] MEDS ORDERED: METF-438 PO (14:31)
[2024-09-17] MEDS ORDERED: DORZ10DR32 LEFTEYE (14:43)
[2024-09-18] VITALS (20 sets, daily range): BP systolic 171–199; BP diastolic 89–107; PULSE 60–94; RESP 0–22; TEMP 97.1–98.3; O2SAT 91–98
[2024-09-18 08:17] LABS: BASOPHILS % (AUTO) 0.1 % (0-1); EOSINOPHILS % (AUTO) 0 % (0-6); HEMATOCRIT 30.4 % (42.0-52.0); HEMOGLOBIN 10.2 g/dl (14.0-17.9); LYMPHOCYTES # (AUTO) 0.4 X10'3 (1.1-4.8); LYMPHOCYTES % (AUTO) 4.8 % (21-51); MEAN CORPUSCULAR HEMOGLOBIN 31.6 PG (27.0-31.0); MEAN CORPUSCULAR HGB CONC 33.5 g/dL (33.0-36.5); MEAN CORPUSCULAR VOLUME 94.2 FL (78-98); MEAN PLATELET VOLUME 8.8 FL (7.4-10.4); MONOCYTES # (AUTO) 0.3 X10'3 (0-0.9); MONOCYTES % (AUTO) 3.9 % (2-12); NEUTROPHILS # (AUTO) 6.8 X10'3 (1.8-7.7); NEUTROPHILS % (AUTO) 91.2 % (42-75); PLATELET COUNT 191 X10'3 (140-440); RED BLOOD COUNT 3.22 X10'6 (4.70-6.10); RED CELL DISTRIBUTION WIDTH 15.1 % (11.5-14.5); WHITE BLOOD COUNT 7.5 X10'3 (4.5-11.0)
[2024-09-18 08:25] LABS: ALBUMIN 2.8 G/DL (3.4-5.0); ANION GAP 10 (8-16); BLOOD UREA NITROGEN 19 MG/DL (7-18); BUN/CREATININE RATIO 17.6 (10.0-20.0); CALCIUM 8.2 MG/DL (8.5-10.1); CHLORIDE 107 MMOL/L (99-107); CREATININE 1.08 MG/DL (0.60-1.10); GLUCOSE 137 MG/DL (70-104); MAGNESIUM 2.1 MG/DL (1.5-2.4); POTASSIUM 3.2 MMOL/L (3.5-5.1); SODIUM 140 MMOL/L (135-145); TOTAL CARBON DIOXIDE 22.9 MMOL/L (24-32); eCRCL 50 ML/MIN; eGFR 65 ML/MIN
[2024-09-18] MEDS: metoprolol succinate 25mg (24-HOUR) SR. Tablet PO SCH (08:31)
[2024-09-18] MEDS: acetaminophen 325mg tablet PO PRN (08:37)
[2024-09-18] MEDS: potassium Cl 20 mEq SR tablet PO PRN (09:12)
[2024-09-18 10:32] LABS: ABG BASE EXCESS -3.6 mmol/L (-2.0-3.0); ABG HCO3 19.2 mmol/L (21.0-28.0); ABG OXYGEN SATURATION 95.7 % (94.0-98.0); ABG PCO2 (T) 27.3 mmHg (35.0-48.0); ABG PH (T) 7.462 (7.350-7.450); ABG PO2 (T) 77.1 mmHg (83.0-108.0); ALLEN'S TEST POSITIVE; FCOHb 0.2 % (0.5-1.5); FHHb 4.3 % (0.0-5.0); FMetHb 0.3 % (0.0-1.5); FO2Hb 95.2 % (94.0-98.0); MODE NASAL CANNULA; PATIENT TEMPERATURE 36.4; TOTAL HEMOGLOBIN 12.1 G/dl (13.5-17.5)
[2024-09-18] MEDS: hydrALAZINE 20mg/ml inj. IV PRN (12:47)
[2024-09-18] MEDS: metoprolol tartrate 1mg/ml inj IV SCH (17:38)
[2024-09-18] MEDS ORDERED: amLODIPine 5mg tablet PO SCH (20:00)
[2024-09-18] MEDS: losartan 25mg tablet PO SCH (21:12)
[2024-09-19] VITALS (19 sets, daily range): BP systolic 166–184; BP diastolic 78–100; PULSE 60–70; RESP 15–20; TEMP 97.4–98.5; O2SAT 90–98
[2024-09-19 07:36] LABS: BASOPHILS % (AUTO) 0.1 % (0-1); EOSINOPHILS % (AUTO) 0 % (0-6); HEMATOCRIT 33.6 % (42.0-52.0); HEMOGLOBIN 11.1 g/dl (14.0-17.9); LYMPHOCYTES # (AUTO) 0.3 X10'3 (1.1-4.8); LYMPHOCYTES % (AUTO) 4.8 % (21-51); MEAN CORPUSCULAR HEMOGLOBIN 31.3 PG (27.0-31.0); MEAN CORPUSCULAR VOLUME 94.7 FL (78-98); MEAN PLATELET VOLUME 8.9 FL (7.4-10.4); MONOCYTES # (AUTO) 0.2 X10'3 (0-0.9); MONOCYTES % (AUTO) 3.2 % (2-12); NEUTROPHILS # (AUTO) 5.9 X10'3 (1.8-7.7); NEUTROPHILS % (AUTO) 91.9 % (42-75); PLATELET COUNT 196 X10'3 (140-440); RED BLOOD COUNT 3.55 X10'6 (4.70-6.10); RED CELL DISTRIBUTION WIDTH 14.8 % (11.5-14.5); WHITE BLOOD COUNT 6.4 X10'3 (4.5-11.0)
[2024-09-19] MEDS ORDERED: magnesium Cl slow-release 64mg tablet PO PRN (07:45)
[2024-09-19] MEDS ORDERED: magnesium sulf-water 2g/50mL 50 ML IV PRN (07:45)
[2024-09-19] MEDS ORDERED: magnesium sulf-water 4G/100mL 100 ML IV PRN (07:45)
[2024-09-19] MEDS ORDERED: potassium Cl 40MEQ/1/2NS 520ml 520 ML IV PRN (07:45)
[2024-09-19 08:03] LABS: ANION GAP 9 (8-16); BLOOD UREA NITROGEN 21 MG/DL (7-18); CALCIUM 8.6 MG/DL (8.5-10.1); CHLORIDE 105 MMOL/L (99-107); CREATININE 1.05 MG/DL (0.60-1.10); GLUCOSE 135 MG/DL (70-104); MAGNESIUM 2.3 MG/DL (1.5-2.4); POTASSIUM 3.3 MMOL/L (3.5-5.1); SODIUM 140 MMOL/L (135-145); TOTAL CARBON DIOXIDE 25.6 MMOL/L (24-32); eCRCL 51 ML/MIN; eGFR 67 ML/MIN
[2024-09-19] MEDS ORDERED: docusate sod 100mg capsule PO PRN (09:10)
[2024-09-19] MEDS: potassium Cl 20 mEq SR tablet PO PRN (09:40)
[2024-09-19] MEDS ORDERED: furosemide 40mg/4ml inj IV SCH (12:30)
[2024-09-19] MEDS ORDERED: acetaZOLAMIDE IV 500mg inj IV ONE (12:30)
[2024-09-19] MEDS ORDERED: VANCOMYCIN 1.75GM/WATER FOR INJ (PEG) 350 ML IVPB IV ONE (14:00)
[2024-09-19] MEDS ORDERED: iohexol 300mg/ml 100ml inj. ONE (15:36)
[2024-09-20] VITALS (19 sets, daily range): BP systolic 160–197; BP diastolic 72–91; PULSE 54–80; RESP 8–20; TEMP 97.3–97.7; O2SAT 90–98
[2024-09-20 07:23] LABS: BASOPHILS % (AUTO) 0.1 % (0-1); EOSINOPHILS % (AUTO) 0 % (0-6); HEMATOCRIT 33.1 % (42.0-52.0); HEMOGLOBIN 10.9 g/dl (14.0-17.9); LYMPHOCYTES # (AUTO) 0.3 X10'3 (1.1-4.8); MEAN CORPUSCULAR HEMOGLOBIN 30.8 PG (27.0-31.0); MEAN CORPUSCULAR HGB CONC 32.9 g/dL (33.0-36.5); MEAN CORPUSCULAR VOLUME 93.6 FL (78-98); MEAN PLATELET VOLUME 8.7 FL (7.4-10.4); MONOCYTES # (AUTO) 0.2 X10'3 (0-0.9); MONOCYTES % (AUTO) 2.8 % (2-12); NEUTROPHILS # (AUTO) 5.5 X10'3 (1.8-7.7); NEUTROPHILS % (AUTO) 92.1 % (42-75); PLATELET COUNT 178 X10'3 (140-440); RED BLOOD COUNT 3.54 X10'6 (4.70-6.10); RED CELL DISTRIBUTION WIDTH 14.8 % (11.5-14.5); WHITE BLOOD COUNT 5.9 X10'3 (4.5-11.0)
[2024-09-20 07:44] LABS: ALANINE AMINOTRANSFERASE 59 U/L (12-78); ALBUMIN 2.8 G/DL (3.4-5.0); ALBUMIN/GLOBULIN RATIO 0.8 (1.1-1.5); ALKALINE PHOSPHATASE 34 IU/L (46-116); ANION GAP 6 (8-16); ASPARTATE AMINO TRANSFERASE 48 U/L (10-37); BLOOD UREA NITROGEN 23 MG/DL (7-18); BUN/CREATININE RATIO 22.3 (10.0-20.0); CALCIUM 8.3 MG/DL (8.5-10.1); CHLORIDE 104 MMOL/L (99-107); CREATININE 1.03 MG/DL (0.60-1.10); GLUCOSE 131 MG/DL (70-104); MAGNESIUM 2.2 MG/DL (1.5-2.4); POTASSIUM 3.1 MMOL/L (3.5-5.1); SODIUM 138 MMOL/L (135-145); TOTAL CARBON DIOXIDE 28.3 MMOL/L (24-32); TOTAL PROTEIN 6.2 G/DL (6.4-8.2); eCRCL 52 ML/MIN; eGFR 69 ML/MIN
[2024-09-20] MEDS: losartan 25mg tablet PO SCH (09:55)
[2024-09-20] MEDS: thiamine 100mg tablet PO SCH (09:55)
[2024-09-20] MEDS: folic acid 1mg tablet PO SCH (09:55)
[2024-09-20] MEDS: amLODIPine 5mg tablet PO ONE (09:55)
[2024-09-20] MEDS: hydrALAZINE 20mg/ml inj. IV PRN (12:37)
[2024-09-20] MEDS ORDERED: potassium Cl 40MEQ/1/2NS 520ml 520 ML IV STA (12:51)
[2024-09-20] MEDS: azithromycin/NS 500mg/250ml 250 ML IV SCH (13:32)
[2024-09-20] MEDS: potassium Cl 20 mEq SR tablet PO SCH (13:32)
[2024-09-20] MEDS: furosemide 40mg/4ml inj IV STA (13:32)
[2024-09-20] MEDS ORDERED: VANCOMYCIN 1GM 200ML H20 (PEG) 200 ML IV SCH (14:00)
[2024-09-20] MEDS: acetaminophen 325mg tablet PO PRN (15:19)
[2024-09-21] VITALS (21 sets, daily range): BP systolic 138–190; BP diastolic 71–90; PULSE 62–87; RESP 15–20; TEMP 97.2–98.2; O2SAT 93–98
[2024-09-21] MEDS: furosemide 40mg/4ml inj IV SCH (00:59)
[2024-09-21 05:44] LABS: BASOPHILS % (AUTO) 0.1 % (0-1); EOSINOPHILS % (AUTO) 0 % (0-6); HEMATOCRIT 38.1 % (42.0-52.0); HEMOGLOBIN 12.5 g/dl (14.0-17.9); LYMPHOCYTES # (AUTO) 0.2 X10'3 (1.1-4.8); LYMPHOCYTES % (AUTO) 3.5 % (21-51); MEAN CORPUSCULAR HEMOGLOBIN 30.3 PG (27.0-31.0); MEAN CORPUSCULAR HGB CONC 32.7 g/dL (33.0-36.5); MEAN CORPUSCULAR VOLUME 92.5 FL (78-98); MEAN PLATELET VOLUME 8.3 FL (7.4-10.4); MONOCYTES # (AUTO) 0.2 X10'3 (0-0.9); MONOCYTES % (AUTO) 3.5 % (2-12); NEUTROPHILS # (AUTO) 5.8 X10'3 (1.8-7.7); NEUTROPHILS % (AUTO) 92.9 % (42-75); PLATELET COUNT 208 X10'3 (140-440); RED BLOOD COUNT 4.12 X10'6 (4.70-6.10); RED CELL DISTRIBUTION WIDTH 14.3 % (11.5-14.5); WHITE BLOOD COUNT 6.2 X10'3 (4.5-11.0)
[2024-09-21 06:05] LABS: ALANINE AMINOTRANSFERASE 69 U/L (12-78); ALBUMIN/GLOBULIN RATIO 0.8 (1.1-1.5); ALKALINE PHOSPHATASE 38 IU/L (46-116); ANION GAP 11 (8-16); ASPARTATE AMINO TRANSFERASE 41 U/L (10-37); BILIRUBIN,TOTAL 1.6 MG/DL (0.1-1.0); BLOOD UREA NITROGEN 27 MG/DL (7-18); CALCIUM 8.9 MG/DL (8.5-10.1); CHLORIDE 102 MMOL/L (99-107); CREATININE 1.04 MG/DL (0.60-1.10); GLUCOSE 126 MG/DL (70-104); MAGNESIUM 2.3 MG/DL (1.5-2.4); PRO BRAIN NATRIURETIC PEPTIDE 2751 PG/ML (0-450); SODIUM 142 MMOL/L (135-145); TOTAL CARBON DIOXIDE 28.8 MMOL/L (24-32); TOTAL PROTEIN 6.6 G/DL (6.4-8.2); eCRCL 52 ML/MIN; eGFR 68 ML/MIN
[2024-09-21 07:55] LABS: TOTAL CELLS COUNTED 100
[2024-09-21 07:58] LABS: BURR CELLS FEW; ELLIPTOCYTES FEW; PLATELET ESTIMATE NORMAL; POLYCHROMASIA FEW; SCHISTOCYTES FEW; TEAR DROP CELLS FEW
[2024-09-21] MEDS ORDERED: losartan 25mg tablet PO SCH (08:00)
[2024-09-21] MEDS: amLODIPine 5mg tablet PO SCH (09:21)
[2024-09-21] MEDS: potassium Cl 20 mEq SR tablet PO PRN (11:45)
[2024-09-21] MEDS: nystatin 500,000 unit/5ML UD oral suspension PO SCH (14:57)
[2024-09-21] MEDS: lactose-reduced food (Ensure Enlive) - 237ml bottle PO SCH (17:30)
[2024-09-21] MEDS: metoprolol tartrate 1mg/ml inj IV SCH (18:01)
[2024-09-21] MEDS: ipratropium/albuterol 3ml nebule NEB SCH (19:58)
[2024-09-22] VITALS (11 sets, daily range): BP systolic 148–165; BP diastolic 72–130; PULSE 62–78; RESP 14–18; TEMP 97.1–98.4; O2SAT 89–97
[2024-09-22 06:50] LABS: BASOPHILS % (AUTO) 0.1 % (0-1); EOSINOPHILS % (AUTO) 0 % (0-6); HEMATOCRIT 40.3 % (42.0-52.0); HEMOGLOBIN 13.6 g/dl (14.0-17.9); LYMPHOCYTES # (AUTO) 0.2 X10'3 (1.1-4.8); LYMPHOCYTES % (AUTO) 2.9 % (21-51); MEAN CORPUSCULAR HEMOGLOBIN 31.5 PG (27.0-31.0); MEAN CORPUSCULAR HGB CONC 33.8 g/dL (33.0-36.5); MEAN CORPUSCULAR VOLUME 93.4 FL (78-98); MEAN PLATELET VOLUME 8.6 FL (7.4-10.4); MONOCYTES # (AUTO) 0.2 X10'3 (0-0.9); MONOCYTES % (AUTO) 3.7 % (2-12); NEUTROPHILS # (AUTO) 6.2 X10'3 (1.8-7.7); NEUTROPHILS % (AUTO) 93.3 % (42-75); PLATELET COUNT 212 X10'3 (140-440); RED BLOOD COUNT 4.32 X10'6 (4.70-6.10); RED CELL DISTRIBUTION WIDTH 14.9 % (11.5-14.5); WHITE BLOOD COUNT 6.6 X10'3 (4.5-11.0)
[2024-09-22 07:05] LABS: ALANINE AMINOTRANSFERASE 63 U/L (12-78); ALBUMIN/GLOBULIN RATIO 0.9 (1.1-1.5); ALKALINE PHOSPHATASE 38 IU/L (46-116); ANION GAP 9 (8-16); ASPARTATE AMINO TRANSFERASE 32 U/L (10-37); BILIRUBIN,TOTAL 1.6 MG/DL (0.1-1.0); BLOOD UREA NITROGEN 35 MG/DL (7-18); BUN/CREATININE RATIO 29.4 (10.0-20.0); CALCIUM 8.5 MG/DL (8.5-10.1); CHLORIDE 101 MMOL/L (99-107); CREATININE 1.19 MG/DL (0.60-1.10); GLUCOSE 128 MG/DL (70-104); MAGNESIUM 2.5 MG/DL (1.5-2.4); POTASSIUM 3.4 MMOL/L (3.5-5.1); SODIUM 140 MMOL/L (135-145); TOTAL CARBON DIOXIDE 29.9 MMOL/L (24-32); TOTAL PROTEIN 6.5 G/DL (6.4-8.2); eCRCL 45 ML/MIN; eGFR 58 ML/MIN
[2024-09-22] MEDS: metoprolol tartrate 50mg tablet PO SCH (11:26)
[2024-09-22] MEDS ORDERED: VANCOMYCIN LEVEL IV ONE (13:30)
== END 2024-09-22 17:50 | DRG 871 ==
LOC: ER 19:02 → ED HOLD 09-16 00:07 → EDBEDREQ 09-16 18:14 → PCU 3S 09-16 19:22
PROVIDERS: ADMIT Internal Medicine Critical Care Medicine; ATTEND Nurse Practitioner Family
PROC: 5A09357 Assistance with Respiratory Ventilation, Less than 24 Consecutive Hours, Continuous Positive Airway Pressure (ICD-10-PCS; 2024-09-15)
PROC: 5A09357 Assistance with Respiratory Ventilation, Less than 24 Consecutive Hours, Continuous Positive Airway Pressure (ICD-10-PCS; 2024-09-16)
PROC: B32T1ZZ Computerized Tomography (CT Scan) of Left Pulmonary Artery using Low Osmolar Contrast (ICD-10-PCS; 2024-09-16)
PROC: B3201ZZ Computerized Tomography (CT Scan) of Thoracic Aorta using Low Osmolar Contrast (ICD-10-PCS; 2024-09-16)
PROC: B32S1ZZ Computerized Tomography (CT Scan) of Right Pulmonary Artery using Low Osmolar Contrast (ICD-10-PCS; 2024-09-16)
PROC: 5A09357 Assistance with Respiratory Ventilation, Less than 24 Consecutive Hours, Continuous Positive Airway Pressure (ICD-10-PCS; 2024-09-17)
PROC: 5A09357 Assistance with Respiratory Ventilation, Less than 24 Consecutive Hours, Continuous Positive Airway Pressure (ICD-10-PCS; 2024-09-18)
PROC: BW211ZZ Computerized Tomography (CT Scan) of Abdomen and Pelvis using Low Osmolar Contrast (ICD-10-PCS; 2024-09-19)
PROC: 05HB33Z Insertion of Infusion Device into Right Basilic Vein, Percutaneous Approach (ICD-10-PCS; principal; 2024-09-22)
DX: A41.9 Sepsis, unspecified organism (principal); I50.33 Acute on chronic diastolic (congestive) heart failure; J18.9 Pneumonia, unspecified organism; J96.01 Acute respiratory failure with hypoxia; J44.0 Chronic obstructive pulmonary disease with (acute) lower respiratory infection; J44.1 Chronic obstructive pulmonary disease with (acute) exacerbation; N17.9 Acute kidney failure, unspecified; E87.3 Alkalosis; Z20.822 Contact with and (suspected) exposure to COVID-19; F32.9 Major depressive disorder, single episode, unspecified; G47.33 Obstructive sleep apnea (adult) (pediatric); I11.0 Hypertensive heart disease with heart failure; D64.9 Anemia, unspecified; Z99.81 Dependence on supplemental oxygen; Z79.01 Long term (current) use of anticoagulants; Z79.899 Other long term (current) drug therapy
CPT/HCPCS: 36410; 36415; 36600; 71045; 71275; 74177; 76942; 80048; 80053; 81001; 81003; 82803; 82948; 83605; 83735; 83880; 83930; 84132; 84145; 84484; 85007; 85018; 85025; 85379; 85651; 86140; 87040; 87081; 87502; 87503; 87811; 93005; 93306; 94640; 94660; 94760; 96365; 96367; 96375; 97110; 97116; 97161; 97530; 97535; 99291; A4615; A4620; A6258; C1751; G0378; J0131; J0360; J0456; J0696; J1644; J1940; J2060; J2543; J2919; J3411; J3490; J7030; Q9967